=== PATIENT | female | born 1995 | race Caucasian/White ===

== ENCOUNTER 2022-08-21 13:20 | Inpatient (IN) | payer OTHER ==
[~2022-08-21] VITALS: Ht 157.5 cm; Wt 68.9 kg
[2022-08-21] MEDS ORDERED: AMPICILLIN 2GM in NS 100ML 100 ML IV SCH (13:52)
[2022-08-21] MEDS ORDERED: LIDOCAINE HCL 1% 20ML VIAL (Pyxis) INJ INFIL NR (14:00)
[2022-08-21] MEDS ORDERED: BUTORPHANOL TARTRATE 2 MG/ML VIAL IV PRN (14:00)
[2022-08-21] MEDS ORDERED: LACTATED RINGERS 1,000 ML IV SCH (14:00)
[2022-08-21] MEDS ORDERED: NALOXONE HCL 0.4 MG/ML 1ML VIAL IM PRN (14:00)
[2022-08-21] MEDS ORDERED: METHYLERGONOVINE MALEATE 0.2 MG/ML IM PRN ×2 (14:00→15:30)
[2022-08-21] MEDS ORDERED: CARBOPROST TROMETHAMINE 250 MCG/ML AMPUL IM PRN (14:00)
[2022-08-21] MEDS ORDERED: OXYTOCIN 30 UNITS/500ML NS PMX 500 ML IV SCH (14:00)
[2022-08-21 14:16] LABS: BASOPHILS % 0.5 % (0.0-2.0); EOSINOPHILS % 0.5 % (0.0-5.0); HEMATOCRIT. 32.7 % (36.0-48.0); HEMOGLOBIN. 10.4 g/dL (12.0-16.0); LYMPHOCYTES % 22.4 % (20.0-50.0); MEAN CORPUSCULAR HEMOGLOBIN 22.4 pg (28.0-32.0); MEAN CORPUSCULAR VOLUME 70.4 fL (81.0-99.0); MEAN PLATELET VOLUME 9.1 fl (7.4-10.4); MONOCYTES % 6.6 % (2.0-8.0); PLATELET 308 x1000/uL (130-400); RED BLOOD CELL COUNT 4.64 mill/uL (4.2-5.4); RED CELL DISTRIBUTION WIDTH 18.6 % (11.6-14.6)
[2022-08-21 14:25] LABS: INR 0.9; PARTIAL THROMBOPLASTIN TIME 23.7 sec (23.4-31.0); PROTHROMBIN TIME 9.6 sec (9.6-11.0)
[2022-08-21] MEDS: OXYTOCIN 30 UNITS/500ML NS PMX 500 ML IV SCH ×2 (15:12→16:33)
[2022-08-21] MEDS ORDERED: BISACODYL 10MG SUPP PR PRN (15:30)
[2022-08-21] MEDS ORDERED: IBUPROFEN 400MG TABLET PO PRN (15:30)
[2022-08-21] MEDS ORDERED: ACETAMINOPHEN 500MG TABLET PO PRN (15:30)
[2022-08-21] MEDS ORDERED: OXYCODONE HCL/ACETAMINOPHEN 5/325MG TABLET PO PRN ×2 (15:30)
[2022-08-21] MEDS ORDERED: HEMORRHOIDAL SUPP PR PRN (15:30)
[2022-08-21] MEDS ORDERED: ACETAMINOPHEN WITH CODEINE 300/30MG TABLET PO PRN ×2 (15:30)
[2022-08-21] MEDS ORDERED: MAGNESIUM 4 G PREMIX 100 ML IV ONE (15:30)
[2022-08-21] MEDS ORDERED: DIPHENHYDRAMINE 25MG CAPSULE PO PRN (15:30)
[2022-08-21] MEDS ORDERED: RHO(D) IMMUNE GLOBULIN 300 MCG/SYR IM PRN (15:30)
[2022-08-21] MEDS ORDERED: BETAMETHASONE ACET/BETAMET 30 MG/5 ML VIAL IM SCH (15:30)
[2022-08-21] MEDS ORDERED: GLYCERIN/WITCH HAZEL LEAF MEDICATED PAD TOP PRN (15:30)
[2022-08-21] MEDS ORDERED: BENZOCAINE/LANOLIN/ALOE VERA SPRAY TOP PRN (15:30)
[2022-08-21 16:06] LABS: HEPATITIS B SURFACE ANTIGEN NEGATIVE
[2022-08-21] MEDS ORDERED: MAGNESIUM 2 G PREMIX 50 ML IV ONE (16:30)
[2022-08-21 17:45] VITALS: BP 99/57
[2022-08-21 19:30] VITALS: BP 103/57
[2022-08-21 19:38] LABS: CLARITY URINE CLEAR (CLEAR); COLOR URINE YELLOW (YELLOW); KETONES URINE 2+ (NEGATIVE); LEUKOCYTE ESTERASE URINE NEGATIVE (NEGATIVE); NITRITE URINE NEGATIVE (NEGATIVE); OCCULT BLOOD URINE NEGATIVE (NEGATIVE); PH URINE 7.5 (4.5-8.0); PROTEIN URINE 2+ (NEGATIVE); SPECIFIC GRAVITY URINE 1.024 (1.005-1.030)
[2022-08-21 19:49] LABS: *AMPHETAMINES SCREEN URINE NEGATIVE (NEGATIVE); *BARBITURATES SCREEN URINE NEGATIVE (NEGATIVE); *BENZODIAZEPINES SCREEN URINE NEGATIVE (NEGATIVE); *COCAINE SCREEN URINE NEGATIVE (NEGATIVE); CANNABINOID URINE SCREEN NEGATIVE (NEGATIVE); METHADONE URINE SCREEN NEGATIVE (NEGATIVE); OPIATES URINE SCREEN NEGATIVE (NEGATIVE); PHENCYCLIDINE URINE SCREEN NEGATIVE (NEGATIVE)
[2022-08-21] MEDS ORDERED: AMPICILLIN 1,000 MG in SODIUM CHLORIDE 0.9% 50 ML IV SCH (20:00)
[2022-08-21] MEDS: DOCUSATE SODIUM 100MG CAPSULE PO SCH (21:24)
[2022-08-21] MEDS: SIMETHICONE 80MG TABLET CHEW PO SCH (21:24)
[2022-08-22 04:00] VITALS: BP 107/69
[2022-08-22 07:16] LABS: BASOPHILS % 0.3 % (0.0-2.0); EOSINOPHILS % 0.6 % (0.0-5.0); HEMATOCRIT. 26.6 % (36.0-48.0); HEMOGLOBIN. 8.5 g/dL (12.0-16.0); LYMPHOCYTES % 28.1 % (20.0-50.0); MEAN CORPUSCULAR HEMOGLOBIN 22.7 pg (28.0-32.0); MEAN CORPUSCULAR VOLUME 70.9 fL (81.0-99.0); MEAN PLATELET VOLUME 9.5 fl (7.4-10.4); MONOCYTES % 7.6 % (2.0-8.0); NEUTROPHILS % 63.4 % (40.0-76.0); PLATELET 251 x1000/uL (130-400); RED BLOOD CELL COUNT 3.75 mill/uL (4.2-5.4); RED CELL DISTRIBUTION WIDTH 18.5 % (11.6-14.6)
[2022-08-22] MEDS: FERROUS SULFATE 325MG TABLET PO SCH ×3 (07:58→17:22)
[2022-08-22] MEDS: IBUPROFEN 800MG TABLET PO PRN (07:58)
[2022-08-22] MEDS: SIMETHICONE 80MG TABLET CHEW PO SCH ×4 (07:58→21:15)
[2022-08-22 08:11] VITALS: BP 106/66
[2022-08-22] MEDS: PRENATAL VIT/FE FUMARATE/FA TABLET PO SCH (08:33)
[2022-08-22 15:46] VITALS: BP 104/66
[2022-08-22 19:00] VITALS: BP 109/68
[2022-08-22] MEDS: DOCUSATE SODIUM 100MG CAPSULE PO SCH (21:15)
[2022-08-23 04:00] VITALS: BP 103/71
[2022-08-23] MEDS ORDERED: IBUP-2030 PO (06:25)
[2022-08-23 08:00] VITALS: BP 105/74
[2022-08-23] MEDS: SIMETHICONE 80MG TABLET CHEW PO SCH (08:24)
[2022-08-23] MEDS: IBUPROFEN 800MG TABLET PO PRN (08:24)
[2022-08-23] MEDS: PRENATAL VIT/FE FUMARATE/FA TABLET PO SCH (08:24)
[2022-08-23] MEDS: FERROUS SULFATE 325MG TABLET PO SCH (08:24)
== END 2022-08-23 12:00 | disposition home or self-care (01) | DRG 560 ==
LOC: INTOOBSV 13:20 → OBSVTOIN 13:20 → 8 EST LDRP 13:20 → 8EST 17:20
PROVIDERS: ADMIT Obstetrics & Gynecology; ATTEND Obstetrics & Gynecology
PROC: 10E0XZZ Delivery of Products of Conception, External Approach (ICD-10-PCS; principal; 2022-08-21)
PROC: 0KQM0ZZ Repair Perineum Muscle, Open Approach (ICD-10-PCS; 2022-08-21)
DX: O48.0 Post-term pregnancy (principal); Z37.0 Single live birth; O98.32 Other infections with a predominantly sexual mode of transmission complicating childbirth; O69.81X0 Labor and delivery complicated by cord around neck, without compression, not applicable or unspecified; Z20.822 Contact with and (suspected) exposure to COVID-19; O70.1 Second degree perineal laceration during delivery; O99.02 Anemia complicating childbirth; Z3A.40 40 weeks gestation of pregnancy; A63.0 Anogenital (venereal) warts
CPT/HCPCS: 36415; 80305; 81003; 85025; 86592; 86703; 86762; 86850; 86900; 87340; 87426; 99281; G0378; J0290; J3475; J3490; J2590